=== PATIENT | male | born 1995 ===

== ENCOUNTER 2022-03-11 14:16 | Emergency (ER) ==
[2022-03-11] MEDS ORDERED: Ibuprofen 400 MG Tab PO ONE (14:17)
[2022-03-11] MEDS ORDERED: Acetaminophen 500 MG Tab PO ONE (14:17)
[2022-03-11] MEDS ORDERED: Diphtheria,Pertussis(Acell),Tetanus Vaccine 0.5 ML Syringe ONE (15:00)
[2022-03-11] MEDS ORDERED: Diphtheria,Pertussis(Acell),Tetanus Vaccine 0.5 ML Syringe IM ONE (15:00)
== END 2022-03-11 16:48 ==
LOC: MW.ED 14:16
DX: S01.84XA Puncture wound with foreign body of other part of head, initial encounter (principal); Z23 Encounter for immunization; W33.01XA Accidental discharge of shotgun, initial encounter
CPT/HCPCS: 70450; 70486; 90471; 90715; 99283; A9270